=== PATIENT | female | born 1950 | race Two or more races ===

== ENCOUNTER → 2017-05-12 | Outpatient (CLI) | payer OTHER ==
--- NOTE | 2017-05-12 20:38 | HKNOTE ---
DATE OF SERVICE: 05/12/2017 CHIEF COMPLAINT: Left knee pain. HISTORY OF PRESENT ILLNESS: This is a 66-year-old white female who is complaining of worsening left knee pain for the last 5 years. The pain is constant. It is interfering with her activities of daily living. She uses a cane for ambulation. She has instability. She has difficulty walking. She takes diclofenac, which provides only minimal pain relief. She has had previous physical therapy with no pain relief. She denies any history of trauma. She has no other complaints. PAST MEDICAL HISTORY: None. MEDICATIONS: None. PAST SURGICAL HISTORY: None. SOCIAL HISTORY: She is . Denies tobacco, alcohol or drug use. FAMILY HISTORY: Noncontributory. ALLERGIES: NO KNOWN DRUG ALLERGIES. REVIEW OF SYSTEMS: Negative. PHYSICAL EXAMINATION: GENERAL: Patient is in no acute distress. She is alert and oriented x4. GAIT: Antalgic gait. LEFT KNEE: There is varus alignment. Tender to palpation over the medial joint line. A 10-105 degrees range of motion. Tender over the lateral joint line. Positive Lorie's. Negative Esther's. Negative anterior drawer. Negative posterior drawer. Stable to varus, valgus stress. A 5/5 function of quadriceps, tibialis anterior, gastrocnemius-soleus. Palpable dorsalis pedis and posterior tibialis pulse. IMAGING: X-rays, left knee, there is tricompartmental osteoarthritis with marginal osteophytes and subchondral sclerosis. MRI, left knee, there is a complex tear of the medial meniscus, posterior horn and body. There is tricompartmental disease. IMPRESSION: A 66-year-old female with left knee tricompartmental osteoarthritis. PLAN: We will request authorization for left knee steroid injection. She will return in 3 weeks. Dictated By: Lio Patel MD /freeman/laura /Document#: [id number]
--- NOTE | 2017-05-13 11:13 | RADRPT ---
PROCEDURE: XR Knee. CLINICAL INDICATION: Left knee pain TECHNIQUE: 3 views of the left knee are available for review. COMPARISON: None available FINDINGS: Severe narrowing of the medial compartment of the left knee is seen. Mild narrowing of the lateral compartment of the left knee is seen. There is narrowing of the patellofemoral joint as well. Ther e is significant associated osteophyte formation as well. Findings are consistent with significant osteoarthritic degenerative changes of the left knee. No acute fracture or dislocation is seen. No radiopaque foreign body is identified. Alignment remains anatomic. Tiny suprapatellar joint effusi on is present. IMPRESSION: 1. Tricompartmental osteoarthritic degenerative changes of the left knee, most severe involving the medial compartment of the left knee. 2. No definite acute fracture or dislocation is seen. RPTAT: PP .James Leija MD, Date Time Electronically viewed and signed by .James Leija MD, on 05/13/2017 11:13 .B/
== END | disposition home or self-care (01) ==
LOC: HKI 14:42
PROVIDERS: ATTEND Orthopaedic Surgery Adult Reconstructive Orthopaedic Surgery
DX: M17.12 Unilateral primary osteoarthritis, left knee (principal)
CPT/HCPCS: G0463

== ENCOUNTER → 2017-06-02 | Outpatient (CLI) | payer OTHER ==
--- NOTE | 2017-06-02 21:00 | CARRPT ---
DATE OF PROCEDURE: 06/02/2017 CHIEF COMPLAINT: Left knee pain. HISTORY OF PRESENT ILLNESS: This is a 66-year-old female complaining of worsening left knee pain. The pain is constant. It is interfering with her activities of daily living. She uses a cane for ambulation. She takes pain medication without any pain relief. Gait: Antalgic gait. Left knee exam: Neutral alignment. Tender over the medial and lateral joint lines, 10-105 degrees range of motion. Stable to varus, valgus stress. Negative Esther. Negative anterior drawer. Negative posterior drawer. Motor strength 5/5 hamstrings, quadriceps, tibialis anterior, gastroc-soleus. Palpable pulses. Right knee: Neutral alignment. Tender over the medial and lateral joint lines, 10-105 degrees range of motion. Stable to varus, valgus stress. Negative Esther. Negative anterior drawer. Negative posterior drawer. Motor strength 5/5 hamstrings, quadriceps, tibialis anterior, gastroc-soleus. Palpable pulses. DIAGNOSIS: A 66-year-old female with bilateral knee osteoarthritis. PLAN: After obtaining verbal consent, the left knee was prepped and draped in the usual sterile fashion. An injection of 1 cc of Kenalog along with 4 cc of lidocaine was injected through the lateral portal. There were no complications. She tolerated the procedure well. She was instructed to ice and elevate the left knee. She can be weightbearing as tolerated. We will request authorization for right knee corticosteroid injection. She will return in one week. Dictated By: Lio Patel MD /freeman/gage /Document#: [id number]
== END | disposition home or self-care (01) ==
LOC: HKI 15:45
PROVIDERS: ATTEND Orthopaedic Surgery Adult Reconstructive Orthopaedic Surgery
DX: M17.0 Bilateral primary osteoarthritis of knee (principal)
CPT/HCPCS: 20610; Z7500; Z7610; G0463

== ENCOUNTER → 2017-06-21 | Outpatient (CLI) | payer OTHER ==
--- NOTE | 2017-06-22 07:20 | HKNOTE ---
DATE OF SERVICE: 06/21/2017 CHIEF COMPLAINT: Bilateral knee pain. HISTORY OF PRESENT ILLNESS: This is a 66-year-old female with bilateral knee osteoarthritis. She h ad a previous left knee " " injection, which has relieved her pain. She is here today for an in jection of the right knee. She denies any groin or back pain. She has no other complaints. GAIT: Antalgic gait. RIGHT KNEE EXAMINATION: Neutral alignment. Tender over the medial joint line; 0 to 120 degrees ran ge of motion and stable to varus-valgus stress. Negative Esther. Negative anterior drawer. Negat nicolás posterior drawer. LEFT KNEE EXAMINATION: Neutral alignment. Tender over the medial joint line; 0 to 120 degrees rang e of motion and stable to varus-valgus stress. Negative Esther. Negative anterior drawer. Negati ve posterior drawer. MOTOR STRENGTH: 5/5 quadriceps, hamstrings, tibialis anterior, gastrocsoleus bilaterally. X-RAYS: RIGHT KNEE: X-rays of the right knee demonstrate tricompartmental osteoarthritis. IMPRESSION: A 66-year-old female with bilateral knee osteoarthritis. PLAN: After obtaining consent, the right knee was prepped and draped in the usual sterile fashion. An injection, consisting of 1 mL of Depo-Medrol, along with 3 mL of 1% lidocaine, was injected into the lateral portal under sterile technique. There were no complications. She tolerated the proced ure well. She was advised to ice and elevate the right knee. She will follow up in 6 weeks. Dictated By: SANTO KING/LYN Conf#: [id number] DID#: [id number]
== END | disposition home or self-care (01) ==
LOC: HKI 15:40
PROVIDERS: ATTEND Orthopaedic Surgery Adult Reconstructive Orthopaedic Surgery
DX: M17.0 Bilateral primary osteoarthritis of knee (principal)
CPT/HCPCS: 20610; J1030; Z7500; Z7610; G0463

== ENCOUNTER → 2018-04-11 | Outpatient (CLI) | END | disposition home or self-care (01) ==

== ENCOUNTER → 2018-10-23 | Outpatient (CLI) | payer OTHER ==
--- NOTE | 2018-10-23 18:22 | CONS ---
Consult Date/Type/Reason Admit Date/Time Initial Consult Date Date/Time of Note DATE: 10/23/18 TIME: 18:19 Subjective 68-year-old female presents to clinic today for bilateral knee steroid injections for osteoarthritis and meniscal tears. These were sent for authorization at last clinic appointment. She states her pain is severe and left more than right knee. The pain is diffuse. Denies fevers and chills. Denies numbness and tingling. Objective Vitals Weight: 185 pound Height: 5 feet 6 inches Temperature: 90.1 Heart Rate: 124/64 Blood Pressure: 88 Respiratory Rate: [] Exam General: Awake, alert, in no acute distress, pleasant and cooperative Heart: regular rhythm Lungs: breathing comfortably, no tachypnea or dyspnea MUSCULOSKELETAL: Bilateral lower extremity Sensation intact to light touch in a sural, saphenous, deep peroneal, superficial peroneal, medial and lateral plantar nerve distribution. Motor is intact, patient able to dorsiflex and plantarflex ankle and extend and flex great toe. Dorsalis Pedis pulse +2, Brisk capillary refill. Compartments are soft. Calves non-tender to palpation bilaterally. Assessment/Plan Hospital Course (Demo Recall) 68-year-old femaleWith bilateral knee osteoarthritis and left meniscal tear. Patient's continue conservative treatment today with steroid injections and gait aid. Plan: Bilateral knee steroid injections Low impact activities Ice Follow-up 3 months Assessment/Plan (Daily) Bilateral knee steroid injection procedure: Risks and benefits of steroid injection reviewed with patient. The risks include infection, failure, pain, swelling, nerve/tendon/ligament damage. The patient verbalized understanding and verbal consent was obtained prior to procedure. The right and left knee was prepped in a sterile fashion with alcohol and betadine the site of injection was confirmed. Anterior medial approach was used. The skin and capsule was anesthetized with 3mL 1% lidocaine. The right and left knee was injected with 2mL 1% lidocaine, 2mL 0.25% bupivacaine, 40mg Depo- Medrol. Injection flowed freely. Good hemostasis was achieved and no complications noted. The patient tolerated the procedure well. Limit activity and ice for 24-48 hours GABY SANFORD MD Oct 23, 2018 18:22
== END | disposition home or self-care (01) ==
LOC: HKI 14:47
PROVIDERS: ATTEND Orthopaedic Surgery Adult Reconstructive Orthopaedic Surgery
DX: M17.0 Bilateral primary osteoarthritis of knee (principal)
CPT/HCPCS: 20610; G0463

== ENCOUNTER → 2019-02-01 | Outpatient (CLI) | payer OTHER ==
--- NOTE | 2019-02-01 18:17 | CONS ---
Consult Date/Type/Reason Admit Date/Time Initial Consult Date Date/Time of Note DATE: 02/01/19 TIME: 18:14 Subjective 68-year-old female with bilateral knee osteoarthritis presents to clinic today for follow-up. 3 months ago she had bilateral knee steroid injections. States that the injections only lasted a short period of time. However she would like to try the injections again. Her pain is severe. Objective Exam General: Awake, alert, in no acute distress, pleasant and cooperative Heart: regular rhythm Lungs: breathing comfortably, no tachypnea or dyspnea MUSCULOSKELETAL: Extremity: Skin intact. No erythema. Sensation intact to light touch in a sural, saphenous, deep peroneal, superficial peroneal, medial and lateral plantar nerve distribution. Motor is intact, patient able to dorsiflex and plantarflex ankle and extend and flex great toe. Dorsalis Pedis pulse +2, Brisk capillary refill. Compartments are soft. Calves non-tender to palpation bilaterally. Assessment/Plan Hospital Course (Demo Recall) 68-year-old female with bilateral knee osteoarthritis. Although last injections did not last very long she would like to try one more time. If these fail she would like to discuss other treatment options. Plan: Bilateral knee steroid injection Ice Low impact activity Follow-up 3 months Assessment/Plan (Daily) Bilateral knee steroid injection procedure: Risks and benefits of steroid injection reviewed with patient. The risks include infection, failure, pain, swelling, nerve/tendon/ligament damage. The patient verbalized understanding and verbal consent was obtained prior to procedure. The right and left knee was prepped in a sterile fashion with alcohol and betadine the site of injection was confirmed. Lateral approach was used. The skin and capsule was anesthetized with 3mL 1% lidocaine. The right and left knee were each injected with 2mL 1% lidocaine, 2mL 0.25% bupivacaine, 40mg Depo- Medrol. Injection flowed freely. Good hemostasis was achieved and no complications noted. The patient tolerated the procedure well. Limit activity and ice for 24-48 hours GABY SANFORD MD February 01, 2019 18:17
== END | disposition home or self-care (01) ==
LOC: HKI 14:08
PROVIDERS: ATTEND Orthopaedic Surgery Adult Reconstructive Orthopaedic Surgery
DX: M17.0 Bilateral primary osteoarthritis of knee (principal)
CPT/HCPCS: 20610; G0463